=== PATIENT | male | born 1970 | race African-American/Black ===

== ENCOUNTER 2016-11-13 18:12 | Emergency (ER) | payer OTHER ==
[2016-11-13 18:45] VITALS: BMI 31.0
[2016-11-13 18:53] VITALS: TEMP 98
[2016-11-13 19:03] LABS: AUTOMATED BASOPHIL 1.7 % (0-2); AUTOMATED EOSINOPHIL 1.5 % (0-5); AUTOMATED LYMPH 31.6 % (17-44); AUTOMATED MONOCYTE 9.5 % (3-10); AUTOMATED NEUTROPHIL 55.7 % (45-76); MPV 8.6 fL (7.4-10.4)
[2016-11-13 19:15] LABS: PARTIAL THROMB. TIME 24.5 SEC (22-35)
[2016-11-13 19:16] LABS: BLOOD UREA NITROGEN 17 MG/DL (9-20); CALCIUM 9.3 MG/DL (8.4-10.2); CALCULATED OSMOLALITY 275 MOs/Kg (270-290); CHLORIDE 105 mEq/L (98-107); GLUCOSE 94 MG/DL (70-99); SODIUM LEVEL 142 mEq/L (137-146); TOTAL PROTEIN 7.4 G/DL (6.3-8.2)
[2016-11-13] MEDS ORDERED: KETOROLAC TROMETH 30 MG/ML VIAL IM ONE (20:32)
--- NOTE | 2016-11-13 20:38 | EDPRACDOC ---
- General Information Chief Complaint: Chest Pain Stated Complaint: CP AROUND NOON Time Seen by Provider: 11/13/16 20:27 Information Source: Patient Mode of Arrival: Car Home Medications: Home Medications Hydrochlorothiazide 12.5 mg PO QAM 07/23/16 Ketorolac Tromethamine [Toradol] 10 mg PO Q6H PRN #20 tab 11/13/16 Allergies/Adverse Reactions: Allergies Allergy/AdvReac Type Severity Reaction Status Date / Time No Known Allergies Allergy Verified 11/13/16 18:45 - History of Present Illness Onset: 1200 HPI: PT HAS HAD CP SINCE AROUND 1200. PT SAID THE PAIN WAS MAINLY ON THE RIGHT SIDE AND WENT AROUND TO HIS BACK AND STRAIGHT THROUGH. PT HAS HAD COLD SX AND HAS BEEN DOING A LOT OF COUGHING. Chest Pain Location: Reports: Right Chest Pain Radiation: Reports: Back Symptoms Occur: Reports: Suddenly Cardiac Risk Factors: Reports: Smoker (FORMER), Hypertension Cardiac History of: Reports: None PE Risk Factors: Reports: None Medications within 24 Hours: Reports: None Prehospital Care: Reports: None Pain Came On: Reports: Suddenly Pain Status: Present Now Pain Description: Reports: Sharp Pain Severity: Mild Pain Worsens With: Reports: Nothing Pain Improves With: Reports: Nothing ED Past Medical History - Patient Medical History Cardiac History: Reports: Hypertension Psychological History: Denies: Depression Surgical History: Reports: Other (ANAL FISTULA REPAIR) - Social Medical History Smoking Status: Never smoker ETOH: None Substance Abuse: None Lives In: Home EDM Review of Systems - Review of Systems ROS Negative Except as Marked: Yes All systems reviewed and were negative except as marked Cardiovascular: Chest Pain - Physical Exam Constitutional: Alert (Awake), No apparent distress Oriented to: Time, Person, Place Last recorded Vital Signs: Last Vital Signs Temp 98 F 11/13/16 18:53 Pulse 70 11/13/16 20:06 Resp 20 11/13/16 20:06 BP 169/100 11/13/16 20:06 Pulse Ox 99 11/13/16 20:06 Oxygen Pulse Oxygen Saturation 99 O2 Device Room Air Oxygen Flow Rate Fraction of Inspired Oxygen ( FIO2) - HEENT Head: Normal ( normocephalic) Eye Exam: Normal (PERRL, EOMI, Sclera white) Oropharynx: Normal (Pharynx:Moist without exudate,Gums-no swelling) ENT EAC: Normal TMJ: Normal Nose: No Symptoms Reported (septum midline) Neck: Normal (FROM, trachea at midline) - Respiratory/Cardiovascular Respiratory: Normal - CTA (BBS clear to auscultation without adventitious sounds ) Cardiovascular: Normal (RRR without murmur, gallop or rub) - GI Auscultation: Normal (NABS) Palpation: Normal (Soft,No rebound or guarding, non distended) Tenderness: Non tender Lamb's Sign: Negative - Musculoskeletal Back: Normal (Non-Tender) Extremities: Normal (Normal tone, Pulses 2+ No cyanosis or edema, FROM) - Integumentary Skin: Normal, Warm, Dry Lymphatics: Normal (no adenopathy) - Neurologic Memory Impaired: Normal Motor Function: Normal (Normal tone, Pulses 2+ No cyanosis or edema, FROM) Cranial Nerve: Normal (CN II-X11 intact sensation, strength 5/5) Cerebellar: Normal Mood Description: Normal Perception: Normal - Action ASA given in the ED: No Aspirin therapy held due to: Other-specify below* (NOT CARDIAC) - Re-evaluation Re-evaluation 1 Re-evaluation Time: 21:25 (IMPROVED) - Results 11/13/16 18:52 11/13/16 18:52 WBC 8.3 xk/uL (3.8-10.8) 11/13/16 18:52 RBC 5.02 xM/uL (4.70-6.10) 11/13/16 18:52 Hgb 15.0 g/dL (14.0-18.0) 11/13/16 18:52 Hct 43.4 % (42-52) 11/13/16 18:52 MCV 87 fL (80-94) 11/13/16 18:52 MCH 29.8 pg (27-32) 11/13/16 18:52 MCHC 34.4 g/dl (33-36) 11/13/16 18:52 RDW 13.8 % (11.5-14.5) 11/13/16 18:52 Plt Count 267 xk/uL (130-400) 11/13/16 18:52 MPV 8.6 fL (7.4-10.4) 11/13/16 18:52 Neut % (Auto) 55.7 % (45-76) 11/13/16 18:52 Lymph % (Auto) 31.6 % (17-44) 11/13/16 18:52 Todd % (Auto) 9.5 % (3-10) 11/13/16 18:52 Eos % (Auto) 1.5 % (0-5) 11/13/16 18:52 Baso % (Auto) 1.7 % (0-2) 11/13/16 18:52 Absolute Neuts (auto) 4.57 xk/uL (1.7-8.2) 11/13/16 18:52 Absolute Lymphs (auto) 2.57 xk/uL (0.65-4.75) 11/13/16 18:52 PT 10.6 SEC (9.2-11.2) 11/13/16 18:52 INR 1.0 11/13/16 18:52 APTT 24.5 SEC (22-35) 11/13/16 18:52 Sodium 142 mEq/L (137-146) 11/13/16 18:52 Potassium 3.4 mEq/L (3.5-5.1) L 11/13/16 18:52 Chloride 105 mEq/L (98-107) 11/13/16 18:52 Carbon Dioxide 25 mMOL/L (22-33) 11/13/16 18:52 Anion Gap 15 mEq/L (8-16) 11/13/16 18:52 BUN 17 MG/DL (9-20) 11/13/16 18:52 Creatinine 1.10 MG/DL (0.66-1.25) 11/13/16 18:52 Estimated GFR (MDRD) > 60 mL/min (>=60) 11/13/16 18:52 Glucose 94 MG/DL (70-99) 11/13/16 18:52 Calculated Osmolality 275 MOs/Kg (270-290) 11/13/16 18:52 Calcium 9.3 MG/DL (8.4-10.2) 11/13/16 18:52 Total Bilirubin 0.7 MG/DL (0.2-1.3) 11/13/16 18:52 AST 36 IU/L (17-59) 11/13/16 18:52 ALT 42 IU/L (21-72) 11/13/16 18:52 Alkaline Phosphatase 63 IU/L (38-126) 11/13/16 18:52 Troponin I < 0.01 ng/mL (<.04) 11/13/16 18:52 Yja-C-Fnwpylrwzns Pept 13 pg/mL (0-450) 11/13/16 18:52 Total Protein 7.4 G/DL (6.3-8.2) 11/13/16 18:52 Albumin 4.3 G/DL (3.5-5.0) 11/13/16 18:52 Lab Results 11/13/16 11/13/16 11/13/16 18:52 18:52 18:52 WBC 8.3 RBC 5.02 Hgb 15.0 Hct 43.4 MCV 87 MCH 29.8 MCHC 34.4 RDW 13.8 Plt Count 267 MPV 8.6 Neut % (Auto) 55.7 Lymph % (Auto) 31.6 Todd % (Auto) 9.5 Eos % (Auto) 1.5 Baso % (Auto) 1.7 Absolute Neuts (auto) 4.57 Absolute Lymphs (auto) 2.57 PT 10.6 INR 1.0 APTT 24.5 Sodium 142 Potassium 3.4 L Chloride 105 Carbon Dioxide 25 Anion Gap 15 BUN 17 Creatinine 1.10 Estimated GFR (MDRD) > 60 Glucose 94 Calculated Osmolality 275 Calcium 9.3 Total Bilirubin 0.7 AST 36 ALT 42 Alkaline Phosphatase 63 Troponin I < 0.01 Bal-C-Gjyhrwsvsha Pept 13 Total Protein 7.4 Albumin 4.3 Laboratory Results - last 24 hr 11/13/16 11/13/16 11/13/16 18:52 18:52 18:52 WBC 8.3 RBC 5.02 Hgb 15.0 Hct 43.4 MCV 87 MCH 29.8 MCHC 34.4 RDW 13.8 Plt Count 267 MPV 8.6 Neut % (Auto) 55.7 Lymph % (Auto) 31.6 Todd % (Auto) 9.5 Eos % (Auto) 1.5 Baso % (Auto) 1.7 Absolute Neuts (auto) 4.57 Absolute Lymphs (auto) 2.57 PT 10.6 INR 1.0 APTT 24.5 Sodium 142 Potassium 3.4 L Chloride 105 Carbon Dioxide 25 Anion Gap 15 BUN 17 Creatinine 1.10 Estimated GFR (MDRD) > 60 Glucose 94 Calculated Osmolality 275 Calcium 9.3 Total Bilirubin 0.7 AST 36 ALT 42 Alkaline Phosphatase 63 Troponin I < 0.01 Deb-A-Rlmdoguckva Pept 13 Total Protein 7.4 Albumin 4.3 Laboratory Results 11/13/16 18:52 11/13/16 18:52 - EKG EKG #1 EKG Time: 18:41 -: Yes EKG interpreted by me Rate: bpm: 63 [place]: Normal Rhythm: NSR Block: None Hypertrophy: None ST: Normal - Diagnostic Imaging Chest Image interpreted by: Radiologist NAD - Additional Information PT HAS BEEN TAKING COLD MEDS OTC FOR HIS COLD. I SPOKE WITH HIM ABOUT MEDS THAT ARE SAFE WITH HTN. - Departure Yes I personally saw and evaluated the patient. Disposition: Home Condition: Fair Final Diagnosis: Atypical chest pain, URI (upper respiratory infection), Hypertension Instructions: Chest Pain (ED), Hypertension (ED), Chronic Hypertension (ED) Education/Counseling Given To: Patient Education/Counseling Given Regarding: Diagnosis, Treatment, Follow Up Prescriptions: Ketorolac Tromethamine [Toradol] 10 mg PO Q6H PRN #20 tab PRN Reason: Pain Additional Instructions: F/U WITH PCP FOR A BP RECHECK
--- NOTE | 2016-11-13 21:20 | DIRPT ---
CLINICAL DATA: 46-year-old male with chest pain EXAM: PORTABLE CHEST 1 VIEW COMPARISON: Chest radiograph dated 12/27/2012 FINDINGS: The heart size and mediastinal contours are within normal limits. Both lungs are clear. The visualized skeletal structures are unremarkable. IMPRESSION: No active disease. Electronically Signed By: Dimitry Lewis M.D. On: 11/13/2016 21:17
[2016-11-13 21:49] VITALS: BP 164/108; PULSE 69
== END 2016-11-13 21:45 | disposition home or self-care (01) ==
LOC: ED 18:12
DX: I10 Essential (primary) hypertension (principal); R07.89 Other chest pain; J06.9 Acute upper respiratory infection, unspecified
CPT/HCPCS: 36415; 71010; 80053; 83880; 84484; 85025; 85610; 85730; 93005; 96372; 99284; J1885

== ENCOUNTER 2016-11-17 20:57 | Emergency (ER) | payer OTHER ==
[2016-11-17 21:15] VITALS: BMI 30.1
[2016-11-17] MEDS: Albuterol/Ipratropium Neb 3 ML NEB NEB ONE (21:30)
--- NOTE | 2016-11-17 21:33 | DIRPT ---
CLINICAL DATA: Persistent cough EXAM: CHEST 2 VIEW COMPARISON: November 13, 2016 FINDINGS: The lungs are clear. The heart size and pulmonary vascularity are normal. No adenopathy. No bone lesions. IMPRESSION: No edema or consolidation. Electronically Signed By: Ish Galaviz III, M.D. On: 11/17/2016 21:30
--- NOTE | 2016-11-17 21:33 | EDPRACDOC ---
- General Information Chief Complaint: Flu-Like Symptoms Stated Complaint: COUGH, HEADACHE, FEVER Time Seen by Provider: 11/17/16 21:17 Information Source: Patient Mode Of Arrival: Car Home Medications: Home Medications Hydrochlorothiazide 12.5 mg PO QAM 07/23/16 Albuterol Sulfate [Proair Hfa] 2 puff INH QID #1 inhaler 11/17/16 Azithromycin [Zithromax] 250 mg PO DAILY #6 tablet 11/17/16 Benzonatate [Tessalon Perle] 100 mg PO TID #21 capsule 11/17/16 Methylprednisolone [Medrol] 4 mg PO DAILY #1 tab.ds.pk 11/17/16 Promethazine with Codeine [PHENERGAN with CODEINE] 5 ml PO Q4 #120 udc 11/17/16 Allergies/Adverse Reactions: Allergies Allergy/AdvReac Type Severity Reaction Status Date / Time No Known Allergies Allergy Verified 11/13/16 18:45 - History of Present Illness Symptoms Started: LAST WEEK HPI: PT PRESENTS WITH PRODUCTIVE COUGH, FEVER, NAUSEA AND VOMITING. STATES HE HAS FELT BAD FOR THE PAST WEEK. Symptoms: Reports: Cough, Fever, Nausea, Vomiting Recently Treated Infections:: Denies: Otitis media, Pneumonia, URI Recent Medications: Reports: None Relevant History Of: Reports: None Shortness of Breath: Mild Cough Frequency: Intermittent Cough Description: Reports: Productive Rhinorrhea: Reports: Green Ear Symptoms: Reports: None ED Past Medical History - History Reviewed Yes Nurses notes reviewed and agree except as marked - Patient Medical History Cardiac History: Reports: Hypertension Psychological History: Denies: Depression Surgical History: Reports: Other (ANAL FISTULA REPAIR) - Social Medical History Smoking Status: Never smoker EDM Review of Systems - Review of Systems ROS Negative Except as Marked: Yes All systems reviewed and were negative except as marked - Physical Exam Constitutional: Alert Oriented to: Time, Person, Place Last recorded Vital Signs: Last Vital Signs Temp 100.1 F 11/17/16 21:09 Pulse 89 11/17/16 21:09 Resp 18 11/17/16 21:09 BP 155/97 11/17/16 21:09 Pulse Ox 93 11/17/16 21:09 Oxygen Pulse Oxygen Saturation 93 O2 Device Oxygen Flow Rate Fraction of Inspired Oxygen ( FIO2) - HEENT Head: Normal ( normocephalic) Eye Exam: Normal (PERRL, EOMI, Sclera white) Oropharynx: Normal (Pharynx:Moist without exudate,Gums-no swelling) Tympanic Membrane: Redness Nose: No Symptoms Reported (septum midline) Neck: Normal (FROM, trachea at midline) - Respiratory/Cardiovascular Respiratory: Normal - CTA (BBS clear to auscultation without adventitious sounds ) Cardiovascular: Normal (RRR without murmur, gallop or rub) - GI Auscultation: Normal (NABS) Palpation: Normal (Soft,No rebound or guarding, non distended) Tenderness: Non tender Lamb's Sign: Negative Rectal Exam: Deferred - Musculoskeletal Back: Normal (Non-Tender) Extremities: Normal (Normal tone, Pulses 2+ No cyanosis or edema, FROM) - Integumentary Skin: Normal, Warm, Dry Lymphatics: Normal (no adenopathy) - Neurologic Memory Impaired: Normal Motor Function: Normal (Normal tone, Pulses 2+ No cyanosis or edema, FROM) Cranial Nerve: Normal (CN II-X11 intact sensation, strength 5/5) Cerebellar: Normal Mood Description: Normal Perception: Normal - Differential Diagnosis Bronchitis, Pneumonia, URI - Results 11/17/16 21:39 11/17/16 21:39 Decision Time to Discharge: 22:14 - Departure Disposition: Home Condition: Stable Final Diagnosis: Bronchitis Instructions: Acute Bronchitis (ED) Education/Counseling Given To: Patient Education/Counseling Given Regarding: Diagnosis, Treatment, Prognosis, Follow Up Referrals: Huey Aquino II, MD [Staff Physician] - One Week Prescriptions: Albuterol Sulfate [Proair Hfa] 2 puff INH QID #1 inhaler Azithromycin [Zithromax] 250 mg PO DAILY #6 tablet Benzonatate [Tessalon Perle] 100 mg PO TID #21 capsule Methylprednisolone [Medrol] 4 mg PO DAILY #1 tab.ds.pk Promethazine with Codeine [PHENERGAN with CODEINE] 5 ml PO Q4 #120 udc Forms: Excuse Note Additional Instructions: INCREASE FLUID INTAKE. FOLLOW UP WITH PRIMARY CARE PROVIDER NEXT WEEK. TAKE ALL ANTIBIOTICS PRESCRIBED. RETURN TO THE ED FOR WORSENING SYMPTOMS OR CONCERNS.
[2016-11-17] MEDS: METHYLPREDNISOLONE 125 MG/2 ML VIAL IV ONE (21:41)
[2016-11-17] MEDS: IBUPROFEN 800 MG TAB PO ONE (21:41)
[2016-11-17] MEDS: NS 1,000 ML IV ONE (21:41)
[2016-11-17 21:54] LABS: MPV 9.2 fL (7.4-10.4)
[2016-11-17 21:58] LABS: BLOOD UREA NITROGEN 12 MG/DL (9-20); CALCIUM 9.2 MG/DL (8.4-10.2); CALCULATED OSMOLALITY 271 MOs/Kg (270-290); CHLORIDE 101 mEq/L (98-107); GLUCOSE 97 MG/DL (70-99); SODIUM LEVEL 141 mEq/L (137-146)
[2016-11-17] MEDS ORDERED: ALBUTEROL 6.7 GM MDI INH ONE (22:21)
[2016-11-17 22:24] VITALS: BP 143/88; PULSE 83
[2016-11-17] MEDS: TUSSIONEX 5 ML ORAL SYRINGE PO ONE (22:25)
[2016-11-17] MEDS: AZITHROMYCIN 250 MG TAB PO ONE (22:25)
[2016-11-17 22:30] VITALS: TEMP 99.6
[2016-11-17 22:45] LABS: SEG NEUTROPHIL 57 % (45-76)
[2016-11-17 22:46] LABS: TOTAL CELL COUNT 100
== END 2016-11-17 22:28 | disposition home or self-care (01) ==
LOC: EDMC 20:57
DX: J20.9 Acute bronchitis, unspecified (principal)
CPT/HCPCS: 36415; 71020; 80053; 85007; 85027; 87804; 87880; 94640; 96361; 96374; 99283; J2930; J3490; J7620